=== PATIENT | female | born 1985 | race Two or more races ===

== ENCOUNTER 2021-03-01 13:59 | Inpatient (IN) | payer MEDICAID, OTHER ==
[~2021-03-01] VITALS: Ht 167.6 cm; Wt 93.9 kg
[2021-03-01] MEDS ORDERED: NALOXONE HCL 1MG/ML 2ML SYRINGE ONE (14:19)
[2021-03-01] MEDS ORDERED: LORazepam 2MG/ML-1ML VIAL ONE (14:28)
[2021-03-01] MEDS ORDERED: diphenhdrAMINE HCL 50 MG/1 ML VL ONE (14:37)
[2021-03-01] MEDS ORDERED: SODIUM CHLORIDE 0.9% 2,000 ML IV ONE (15:15)
[2021-03-01] MEDS ORDERED: ACCU-CHEK COMFORT CURVE STRIP VI ONE (15:15)
[2021-03-01] MEDS ORDERED: diphenhdrAMINE HCL 50 MG/1 ML VL IV ONE (15:15)
[2021-03-01] MEDS ORDERED: LORazepam 2MG/ML-1ML VIAL IV ONE ×2 (15:15→16:00)
[2021-03-01] MEDS ORDERED: NALOXONE HCL 1MG/ML 2ML SYRINGE IV ONE (15:15)
[2021-03-01 15:40] LABS: Basophils # (auto) 0 10 ^3/uL (0-0.2); Basophils % (auto) 0.4 % (0.0-2.0); Eosinophils # (auto) 0 10 ^3/uL (0-0.8); Eosinophils % (auto) 0.4 % (0.0-7.0); Hematocrit 36.2 % (36.0-46.0); Hemoglobin 12.5 g/dL (12.2-16.2); Lymphocytes # (auto) 1.3 10 ^3/uL (0.4-5.4); Lymphocytes % (auto) 15.3 % (10.0-50.0); Mean Corpuscular Hemoglobin 29.9 pg (28.0-32.0); Mean Corpuscular Hgb Conc. 34.4 g/dL (32.0-36.0); Monocytes # (auto) 0.5 10 ^3/uL (0-1.3); Monocytes % (auto) 5.5 % (0.0-12.0); Neutrophils # (auto) 6.7 10 ^3/uL (1.6-8.6); Neutrophils % (auto) 78.4 % (37.0-80.0); Nucleated Red Blood Cells % 0.1 %; Platelet Count (auto) 236 10^3/uL (140-450); Red Blood Cells 4.16 10^6/uL (4.0-5.20); White Blood Cell 8.5 10^3/uL (4.4-10.8)
[2021-03-01 15:55] LABS: Albumin 3.9 g/dL (3.4-5.0); Anion Gap 13 (5-15); Blood Alcohol < 3.0 mg/dL (0-5); Blood Urea Nitrogen 14 mg/dL (7-18); Calcium 8.9 mg/dL (8.5-10.1); Carbon Dioxide 21 mmol/L (21-32); Chloride 107 mmol/L (98-107); Glucose 124 mg/dL (74-106); Potassium 3.4 mmol/L (3.5-5.1); Sodium 141 mmol/L (136-145)
[2021-03-01 15:57] LABS: Salicylate < 1.7 mg/dL (2.8-20.0)
[2021-03-01 15:58] LABS: Acetaminophen < 2.0 ug/mL (10-30)
[2021-03-01] MEDS ORDERED: hydrALAZINE HCL 20 MG/ML VL ONE (15:58)
[2021-03-01] MEDS ORDERED: hydrALAZINE HCL 20 MG/ML VL IV ONE (16:00)
[2021-03-01 16:03] LABS: Alanine Aminotransferase 46 U/L (13-56); Alkaline Phosphatase 64 U/L (45-117); Aspartate Aminotransferase 31 U/L (15-37); BUN/Creatinine Ratio 15.1; Bilirubin, Total 0.6 mg/dL (0.1-12.0); GFR African American 0 mL/min; GFR Non-African American 0 mL/min; Total Protein 7.9 g/dL (6.4-8.2)
[2021-03-01 16:11] LABS: Urine Bacteria NONE SEEN /hpf (None Seen); Urine Blood Negative /uL (Negative); Urine Hyaline Cast MANY /lpf (0 - 2); Urine Mucus FEW (None Seen); Urine Specific Gravity 1.027 (1.001-1.035); Urine WBC 8 /hpf (0 - 5)
[2021-03-01 16:28] LABS: Alcohol, Urine < 3.0 mg/dL (0-10); Amphetamine Screen, Urine POSITIVE (NEGATIVE); Barbiturate Scree,Urine NEGATIVE (NEGATIVE); Benzodiazephine Screen, Urine NEGATIVE (NEGATIVE); Cannabinoid Screen, Urine NEGATIVE (NEGATIVE); Cocaine Screen, Urine NEGATIVE (NEGATIVE); Opiate Scree,Urine NEGATIVE (NEGATIVE); Phencyclidine Screen, Urine NEGATIVE (NEGATIVE)
[2021-03-01] MEDS ORDERED: ACETAMINOPHEN 500 MG TAB PO PRN (19:30)
[2021-03-01] MEDS ORDERED: MORPHINE SULF INJ 2 MG/ML SYRINGE 1ML IV PRN (19:30)
[2021-03-01] MEDS ORDERED: ONDANSETRON HCL 4 MG/2 ML VIAL IV PRN (19:30)
[2021-03-01] MEDS ORDERED: IPRATROPIUM BROM 0.5 MG/2.5ML INH SOL NEB PRN (19:30)
[2021-03-01] MEDS ORDERED: NITROGLYCERIN 0.4 MG SL TAB SL PRN (19:30)
[2021-03-01] MEDS ORDERED: ALBUTEROL SULF 2.5 MG/0.5ML(0.5%) NEB SOLN NEB PRN (19:30)
[2021-03-01] MEDS ORDERED: KETOROLAC TROMETH 30 MG/ML 1ML VIAL IV PRN (19:30)
[2021-03-01] MEDS ORDERED: POTASSIUM CHLORIDE 20 MEQ, LIDOCAINE 1% (LOCAL ANESTH.) 2 ML in SODIUM CHL 0.9% 100 ML IV ONE (19:45)
[2021-03-01 20:54] VITALS: BP 143/65
[2021-03-01] MEDS ORDERED: POTASSIUM CHL 20MEQ/100ML 100 ML IV ONE (21:15)
[2021-03-02] MEDS ORDERED: HALOPERIDOL LACTATE 5 MG/ML INJ VIAL IM ONE ×2 (07:45→15:00)
[2021-03-02] MEDS ORDERED: LORazepam 2MG/ML-1ML VIAL IM ONE ×2 (07:45→15:00)
[2021-03-02] MEDS ORDERED: diphenhdrAMINE HCL 50 MG/1 ML VL IM ONE ×2 (07:45→15:00)
[2021-03-02] MEDS ORDERED: HALOPERIDOL LACTATE 5 MG/ML INJ VIAL ONE ×2 (07:48→15:02)
[2021-03-02] MEDS ORDERED: LORazepam 2MG/ML-1ML VIAL ONE ×2 (07:48→15:03)
[2021-03-02] MEDS: SODIUM CHLORIDE 0.9% 1,000 ML IV SCH ×3 (09:19→23:17)
[2021-03-02] MEDS ORDERED: FOLIC ACID 1 MG, MULTIPLE VITAMIN 10 ML, MAGNESIUM SULF SDV 50% 8 MEQ, THIAMINE INJ 100... INJ SCH ×5 (12:00)
[2021-03-02] MEDS ORDERED: diphenhdrAMINE HCL 50 MG/1 ML VL ONE (15:02)
[2021-03-03] MEDS: LORazepam 2MG/ML-1ML VIAL IV PRN ×3 (00:11→09:46)
[2021-03-03] MEDS: SODIUM CHLORIDE 0.9% 1,000 ML IV SCH ×2 (06:59→16:48)
[2021-03-03] MEDS: FOLIC ACID 1 MG, MULTIPLE VITAMIN 10 ML, MAGNESIUM SULF SDV 50% 8 MEQ, THIAMINE INJ 100... INJ SCH ×5 (12:45)
[2021-03-04] VITALS (7 sets, daily range): BP systolic 110–140; BP diastolic 56–76
[2021-03-04] MEDS: SODIUM CHLORIDE 0.9% 1,000 ML IV SCH ×3 (04:14→16:00)
[2021-03-04] MEDS: FOLIC ACID 1 MG, MULTIPLE VITAMIN 10 ML, MAGNESIUM SULF SDV 50% 8 MEQ, THIAMINE INJ 100... INJ SCH ×5 (12:17)
[2021-03-05 05:36] VITALS: BP 128/79
[2021-03-05] MEDS: SODIUM CHLORIDE 0.9% 1,000 ML IV SCH ×2 (08:00)
[2021-03-05 09:00] VITALS: BP 120/93
[2021-03-05] MEDS: FOLIC ACID 1 MG, MULTIPLE VITAMIN 10 ML, MAGNESIUM SULF SDV 50% 8 MEQ, THIAMINE INJ 100... INJ SCH ×5 (12:16)
[2021-03-05 13:00] VITALS: BP 127/91
[2021-03-05 18:08] VITALS: BP 120/93
[2021-03-05 22:00] VITALS: BP 153/94
[2021-03-06 04:57] VITALS: BP 144/88
[2021-03-06] MEDS: OLANZapine 5 MG TAB PO SCH (08:16)
[2021-03-06 09:21] VITALS: BP 153/92
[2021-03-06 12:34] VITALS: BP 161/84
[2021-03-06 16:47] VITALS: BP 126/74
[2021-03-06 21:33] VITALS: BP 116/80
[2021-03-07 05:00] VITALS: BP 113/69
[2021-03-07 09:00] VITALS: BP 115/68
[2021-03-07] MEDS: OLANZapine 5 MG TAB PO SCH (11:08)
[2021-03-07 13:00] VITALS: BP 118/65
[2021-03-07 17:00] VITALS: BP 123/71
[2021-03-07 18:20] VITALS: BP 113/69
== END 2021-03-07 18:53 | disposition short-term general hospital (02) | DRG 817 ==
LOC: ER 13:59 → OVERFLOW 19:23 → EDBD 19:23 → TELE-WESTW 03-03 21:46 → WEST WING 03-06 17:49
PROVIDERS: ADMIT Nurse Practitioner Acute Care; ATTEND Family Medicine
DX: T43.592A Poisoning by other antipsychotics and neuroleptics, intentional self-harm, initial encounter (principal); G92 Toxic encephalopathy; Z78.1 Physical restraint status; F20.9 Schizophrenia, unspecified; F29 Unspecified psychosis not due to a substance or known physiological condition; E86.0 Dehydration; Z20.822 Contact with and (suspected) exposure to COVID-19; E87.6 Hypokalemia; F15.10 Other stimulant abuse, uncomplicated; E66.9 Obesity, unspecified; F17.200 Nicotine dependence, unspecified, uncomplicated; Y92.89 Other specified places as the place of occurrence of the external cause; Z68.31 Body mass index [BMI] 31.0-31.9, adult
CPT/HCPCS: 36415; 51702; 70450; 71045; 80053; 80307; 80320; 80329; 81001; 81025; 83605; 83880; 84484; 85025; 87040; 87086; 87426; 93005; 96361; 96365; 96366; 96367; 96372; 96375; 96376; 99291; G0378; J2001; J3480